=== PATIENT | male | born 1980 | race American Indian/Alaskan Native ===

== ENCOUNTER 2022-02-09 08:45 | Emergency (ER) | payer SELFPAY | END 2022-02-09 13:17 | disposition left against medical advice (07) | LOC: ED 08:45 | DX: Z00.00 Encounter for general adult medical examination without abnormal findings (principal); Z53.21 Procedure and treatment not carried out due to patient leaving prior to being seen by health care provider ==

== ENCOUNTER 2022-08-16 17:50 | Emergency (ER) | payer SELFPAY ==
[2022-08-16 19:08] VITALS: BP 133/82
--- NOTE | 2022-08-16 20:59 | XRay Report ---
LEFT SHOULDER 3 VIEWS INDICATION / CLINICAL INFORMATION: Left shoulder pain with decreased range of motion. No known injury. COMPARISON: None available. FINDINGS: BONES and JOINT(S): No acute fracture or subluxation. No significant arthritis. SOFT TISSUES: No significant abnormality. ADDITIONAL FINDINGS: None. IMPRESSION: 1. No acute findings. Signer Name: Lam Briceno MD Signed: 08/16/2022 8:54 PM Workstation Name: [id number]
--- NOTE | 2022-08-17 02:55 | Emergency Department Report ---
ED Upper Extremity Inj HPI - General Chief Complaint: Extremity Injury, Upper Stated Complaint: ARM PAIN Time Seen by Provider: 08/17/22 01:13 Source: patient Mode of arrival: Ambulatory Limitations: No Limitations - History of Present Illness Complaint: Injury to:: left, shoulder -: Gradual Other Injuries: none - Related Data Previous Rx's Medication Instructions Recorded Last Taken Type Ketorolac [Toradol] 10 mg PO Q6H PRN #15 08/17/22 Unknown Rx Allergies Allergy/AdvReac Type Severity Reaction Status Date / Time No Known Allergies Allergy Verified 08/16/22 19:08 ED Review of Systems ROS: Stated complaint: ARM PAIN Other details as noted in HPI Comment: All other systems reviewed and negative ED Past Medical Hx - Past Medical History Previous Medical History?: No - Surgical History Past Surgical History?: No - Medications Home Medications: Home Medications Medication Instructions Recorded Confirmed Last Taken Type Ketorolac [Toradol] 10 mg PO Q6H PRN #15 08/17/22 Unknown Rx ED Physical Exam - General Limitations: No Limitations - Extremities Exam Extremities exam: Present: tenderness. Absent: normal capillary refill, pedal edema, joint swelling, calf tenderness - Expanded Upper Extremity Exam Left General: Present: other Upper Arm exam: Present: normal inspection Elbow exam: Present: normal inspection ED Course Vital Signs 08/16/22 19:00 Temperature 98.7 F Pulse Rate 91 H Respiratory 18 Rate Blood Pressure 133/82 [Right] O2 Sat by Pulse 99 Oximetry Critical care attestation.: If time is entered above; I have spent that time in minutes in the direct care of this critically ill patient, excluding procedure time. ED Disposition Clinical Impression: Left shoulder pain Disposition: HOME / SELF CARE / HOMELESS Is pt being admited?: No Does the pt Need Aspirin: No Condition: Stable Instructions: Shoulder Pain, How to Use Cold Therapy, [id number], Musculoskeletal Pain, Joint Pain Additional Instructions: Recommend OTC sling for comfort and no heavy lifting with left upper extremity. May benefit from MRI. Prescriptions: Ketorolac [Toradol] 10 mg PO Q6H PRN #15 PRN Reason: Pain Referrals: [facility] [Provider Group] - 3-5 Days BILLIE SHIELDS MD [Staff Physician] - 3-5 Days
== END 2022-08-17 02:58 | disposition home or self-care (01) ==
LOC: ED 17:50
DX: M25.512 Pain in left shoulder (principal); Z79.899 Other long term (current) drug therapy
CPT/HCPCS: 99283